=== PATIENT | male | born 1975 | race Hispanic/Latino ===

== ENCOUNTER 2017-01-08 14:29 | Inpatient (IN) | payer OTHER ==
[2017-01-08] MEDS ORDERED: MOTRIN ONE (17:15)
[2017-01-08] MEDS ORDERED: MOTRIN PO ONE (17:15)
[2017-01-08] MEDS ORDERED: CLEOCIN 900 MG/50 mL 900 MG/50 ML BAG IV ONE (18:37)
[2017-01-08] MEDS ORDERED: MORPHINE IV ONE ×2 (18:40→22:35)
[2017-01-08] MEDS ORDERED: ZOFRAN IV ONE (18:40)
--- NOTE | 2017-01-08 18:49 | Emergency Department Report ---
ED ENT HPI - General Chief complaint: Dental/Oral Stated complaint: TOOTHACHE Time Seen by Provider: 01/08/17 17:31 Source: patient Mode of arrival: Ambulatory Limitations: No Limitations - History of Present Illness Initial comments: This is a 41-year-old male nontoxic, well nourished in appearance, no acute signs of distress presents to the ED with c/o of right eye swelling, right facial swelling and toothache x 3 days. Patient stated on Sunday the toothache started and then today he wake up with right side facial swelling. Patient denies any headache, stiff neck, nausea, fever, chills, vomiting, blurry vision , chest pain, shortness of breathe, back pain, or visual changes. Patient describes pain as aching with level of 10/10. Patient denies any allergies or PMH. MD complaint: tooth pain, other (right facial and eye swelling) -: days(s) (3) Location: tooth # (multiple) Severity: mild Severity scale (0 -10): 10 Quality: aching Consistency: constant Improves with: none Worsens with: none Context- Dental: history of dental caries, poor dental care Associated Symptoms: gum swelling, toothache. denies: fever, cough, pain with swallowing, sore throat, tinnitus, hearing loss, discharge from ear, rhinorrhea - Related Data Previous Rx's Medication Instructions Recorded Last Taken Type Cephalexin [Keflex] 500 mg PO BID #14 capsule 08/26/13 Unknown Rx HYDROcodone/APAP 5-325 [[place] 1 each PO Q6HR PRN #10 tablet 08/26/13 Unknown Rx 5-325 mg TAB] Ibuprofen [Motrin] 800 mg PO Q8H PRN #20 tablet 08/26/13 Unknown Rx Sulfamethoxazole/Trimethoprim 1 each PO BID #14 tablet 08/26/13 Unknown Rx [Bactrim Ds] EPINEPHrine (NF) [Epipen (Nf)] 0.3 mg IM ONCE PRN #1 syringekit 05/28/14 Unknown Rx predniSONE [Deltasone] 50 mg PO QDAY #5 tab 05/28/14 Unknown Rx Allergies Allergy/AdvReac Type Severity Reaction Status Date / Time No Known Allergies Allergy Unverified 08/25/13 19:47 ED Dental HPI - General Chief complaint: Dental/Oral Stated complaint: TOOTHACHE Time Seen by Provider: 01/08/17 17:31 Source: patient Mode of arrival: Ambulatory Limitations: No Limitations - Related Data Previous Rx's Medication Instructions Recorded Last Taken Type Cephalexin [Keflex] 500 mg PO BID #14 capsule 08/26/13 Unknown Rx HYDROcodone/APAP 5-325 [[place] 1 each PO Q6HR PRN #10 tablet 08/26/13 Unknown Rx 5-325 mg TAB] Ibuprofen [Motrin] 800 mg PO Q8H PRN #20 tablet 08/26/13 Unknown Rx Sulfamethoxazole/Trimethoprim 1 each PO BID #14 tablet 08/26/13 Unknown Rx [Bactrim Ds] EPINEPHrine (NF) [Epipen (Nf)] 0.3 mg IM ONCE PRN #1 syringekit 05/28/14 Unknown Rx predniSONE [Deltasone] 50 mg PO QDAY #5 tab 05/28/14 Unknown Rx Allergies Allergy/AdvReac Type Severity Reaction Status Date / Time No Known Allergies Allergy Unverified 08/25/13 19:47 ED Review of Systems ROS: Stated complaint: TOOTHACHE Other details as noted in HPI Constitutional: denies: chills, fever Eyes: other (right eye swelling and redness). denies: eye pain, eye discharge, vision change ENT: dental pain. denies: ear pain, throat pain Respiratory: denies: cough, shortness of breath, wheezing Cardiovascular: denies: chest pain, palpitations Endocrine: no symptoms reported Gastrointestinal: denies: abdominal pain, nausea, diarrhea Genitourinary: denies: urgency, dysuria Musculoskeletal: denies: back pain, joint swelling, arthralgia Skin: denies: rash, lesions Neurological: denies: headache, weakness, paresthesias Psychiatric: denies: anxiety, depression Hematological/Lymphatic: denies: easy bleeding, easy bruising ED Past Medical Hx - Past Medical History Previous Medical History?: No - Surgical History Past Surgical History?: Yes Additional Surgical History: rt hand - Social History Smoking Status: Current Every Day Smoker Substance Use Type: None - Medications Home Medications: Home Medications Medication Instructions Recorded Confirmed Last Taken Type Cephalexin [Keflex] 500 mg PO BID #14 capsule 08/26/13 Unknown Rx HYDROcodone/APAP 5-325 [[place] 1 each PO Q6HR PRN #10 tablet 08/26/13 Unknown Rx 5-325 mg TAB] Ibuprofen [Motrin] 800 mg PO Q8H PRN #20 tablet 08/26/13 Unknown Rx Sulfamethoxazole/Trimethoprim 1 each PO BID #14 tablet 08/26/13 Unknown Rx [Bactrim Ds] EPINEPHrine (NF) [Epipen (Nf)] 0.3 mg IM ONCE PRN #1 syringekit 05/28/14 Unknown Rx predniSONE [Deltasone] 50 mg PO QDAY #5 tab 05/28/14 Unknown Rx ED Physical Exam - General Limitations: No Limitations General appearance: alert, in no apparent distress - Head Head exam: Present: atraumatic, normocephalic - Eye Eye exam: Present: normal appearance, PERRL, EOMI, periorbital swelling, periorbital tenderness. Absent: scleral icterus, conjunctival injection, nystagmus Pupils: Present: normal accommodation. Absent: unequal - ENT ENT exam: Present: mucous membranes moist, TM's normal bilaterally, normal external ear exam - Expanded ENT Exam Expanded Ear exam: Present: normal external inspection Mouth exam: Present: normal external inspection, tongue normal. Absent: drooling, trismus, muffled voice, tongue elevation, laceration Teeth exam: Present: dental caries, fractured tooth # (multiple), dental tenderness # (multiple), gingival enlargement, other (right facial swelling with tenderness. No induration or fluctance noted. ) Throat exam: Positive: normal inspection. Negative: tonsillar erythema, tonsillomegaly, tonsillar exudate, R peritonsillar mass, L peritonsillar mass - Neck Neck exam: Present: normal inspection, full ROM. Absent: tenderness, meningismus, lymphadenopathy, thyromegaly - Respiratory Respiratory exam: Present: normal lung sounds bilaterally. Absent: respiratory distress, wheezes, rales, rhonchi, stridor, chest wall tenderness, accessory muscle use, decreased breath sounds, prolonged expiratory - Cardiovascular Cardiovascular Exam: Present: regular rate, normal rhythm, normal heart sounds. Absent: bradycardia, tachycardia, irregular rhythm, systolic murmur, diastolic murmur, rubs, gallop - GI/Abdominal GI/Abdominal exam: Present: soft, normal bowel sounds. Absent: distended, tenderness, guarding, rebound, rigid, diminished bowel sounds - Rectal Rectal exam: Present: deferred - Extremities Exam Extremities exam: Present: normal inspection, full ROM, normal capillary refill. Absent: tenderness, pedal edema, joint swelling, calf tenderness - Back Exam Back exam: Present: normal inspection, full ROM. Absent: tenderness, CVA tenderness (R), CVA tenderness (L), muscle spasm, paraspinal tenderness, vertebral tenderness, rash noted - Neurological Exam Neurological exam: Present: alert, oriented X3, CN II-XII intact, normal gait, reflexes normal - Psychiatric Psychiatric exam: Present: normal affect, normal mood - Skin Skin exam: Present: warm, dry, intact, normal color. Absent: rash ED Course Vital Signs 01/08/17 16:38 Temperature 98.1 F Pulse Rate 69 Respiratory 20 Rate Blood Pressure 141/75 O2 Sat by Pulse 99 Oximetry - Reevaluation(s) Reevaluation #1: 01/08/17 18:52 Patient is speaking in full sentences with no signs of distress noted. - Consultations Consultation #1: 01/08/17 18:52 Dr. Zavala has been consulted about patient history, physical exam, and examined patient and agrees to the plan of care in the ED. Consultation #2: 01/08/17 21:37 Dr. Pavon (hospitalist) was consulted about patient history, physical exam, and imaging studies and agrees for admission and accepts patient to her services. ED Medical Decision Making - Lab Data Result diagrams: 01/08/17 18:42 01/08/17 18:42 - Medical Decision Making This is a 41-year-old male that presents with periorbital cellulitis, dental abscess. Patient is stable and was examined by me. CBC and BMP obtained with elevated white count. CT with con of face obtained and dictated by radiologist. Patient was notified of the plan of care in the ED as well as admission. Patient received 900mg Clinda IV, Morphine and Zofran in the ED. Dr. Zavala and Dr. Pavon consulted and agrees for admission. Dr. Pavon accepts patient. Patient is put on [employer]. At time time of admission, the patient does not seem toxic or ill in appearance. No acute signs of distress noted. Patient agrees to admission treatment plan of care. No further questions noted by the patient. Critical care attestation.: If time is entered above; I have spent that time in minutes in the direct care of this critically ill patient, excluding procedure time. ED Disposition Clinical Impression: Periorbital cellulitis of right eye, Dental abscess Disposition: OP ADMIT IP TO THIS HOSP Is pt being admited?: Yes Does the pt Need Aspirin: No Condition: Stable Referrals: PRIMARY CARE, [Primary Care Provider] - 3-5 Days
[2017-01-08] MEDS ORDERED: NACL ONE (19:05)
[2017-01-08 19:11] LABS: Basophils % (Auto) 0.5 % (0.0-1.8); Eosinophils % (Auto) 0.1 % (0.0-4.3); Hematocrit 43.5 % (35.5-45.6); Hemoglobin 14.6 gm/dl (11.8-15.2); Mean Corpuscular HGB Conc 33 % (32-34); Mean Corpuscular Hemoglobin 30 pg (28-32); Mean Corpuscular Volume 90 fl (84-94); Platelet Count 270 K/mm3 (140-440); Red Blood Count 4.82 M/mm3 (3.65-5.03)
[2017-01-08 19:34] LABS: Anion Gap 21 mmol/L; BUN/Creatinine Ratio 17; Blood Urea Nitrogen 10 mg/dL (9-20); Calcium 8.9 mg/dL (8.4-10.2); Carbon Dioxide 22 mmol/L (22-30); Chloride 96.9 mmol/L (98-107); Glucose 112 mg/dL (75-100); Potassium 3.9 mmol/L (3.6-5.0); Sodium 136 mmol/L (137-145)
[2017-01-08] MEDS ORDERED: NACL 0.9% 1000 ML 1,000 ML IV ONE (19:40)
--- NOTE | 2017-01-08 21:01 | Cat Scan Report ---
FINAL REPORT PROCEDURE: CT FACIAL BONES W CON TECHNIQUE: Computerized tomography of the facial bones and soft tissues with axial and coronal sections was performed from the cranial aspect of the frontal sinuses to the caudal portion of the mandible following the IV injection of iodinated nonionic contrast. HISTORY: rigth side facial swelling r/o abscess COMPARISON: No prior studies are available for comparison. FINDINGS: Polypoid lesions are noted in the right maxillary sinus most likely representing mucous retention cysts. Irregular lytic lesions are noted surrounding the roots of left upper incisors, right upper molar , right lower molar and right lower pre molar teeth consistent with root canal abscesses. Moderate degree right cheek and mandibular soft tissue swelling is identified. Facial bones are intact. Mild degree mucosal thickening is noted involving the right frontal sinus. Mastoid air cells are clear. Bilateral orbital contents including eyeball zone retrobulbar structures are within normal limits. IMPRESSION: Multiple right-sided root canal abscesses as described above associated with soft tissue swelling. Right frontal chronic sinusitis
[2017-01-08] MEDS ORDERED: MILK OF MAGNESIA PO PRN (22:34)
[2017-01-08] MEDS ORDERED: DULCOLAX PR PRN (22:34)
[2017-01-08] MEDS ORDERED: TYLENOL PR PRN (22:34)
[2017-01-08] MEDS ORDERED: ZOFRAN IV PRN (22:34)
[2017-01-08] MEDS ORDERED: TYLENOL PO PRN (22:34)
[2017-01-08] MEDS ORDERED: MORPHINE ONE (22:37)
--- NOTE | 2017-01-08 22:37 | History and Physical Report ---
History of Present Illness Date of examination: 01/08/17 History of present illness: 41-year-old man with no medical problems, comes to the emergency room with complaint of swolling R of the right side of his face that started this morning. Also complaining of toothache, fever, chills Review Of Systems: Constitutional: no weight loss Ears, eyes, nose, mouth and throat: no nasal congestion, no nasal discharge, no sinus pressure, blurry vision, diplopia Neck: No neck pain or rigidity. Cardiovascular: no chest pain, orthopnea, palpitations Respiratory: No shortness of breath, cough Gastrointestinal: no abdominal pain, hematochezia Genitourinary : no dysuria, frequency , hematuria Musculoskeletal: no muscle ache Integumentary: no rash, no pruritis Neurological: no parathesias, focal weakness Endocrine: no cold or heat intolerance, no polyuria or polydipsia Hematologic/Lymphatic: no easy bruising, no easy bleeding, no gland swelling Allergic/Immunologic: no urticaria, no angioedema. PAST MEDICAL HISTORY:none PAST SURGICAL HISTORY:none FAMILY HISTORY: Hypertension SOCIAL HISTORY: Denies tobacco, alcohol, drugs Medications and Allergies Allergies Allergy/AdvReac Type Severity Reaction Status Date / Time No Known Allergies Allergy Unverified 08/25/13 19:47 Home Medications Medication Instructions Recorded Confirmed Last Taken Type Acetaminophen [Acetaminophen TAB] 325 mg PO Q4H PRN #30 tablet 01/10/17 Unknown Rx Amoxicillin/Potassium Clav 1 each PO BID #10 day 01/10/17 Unknown Rx [Augmentin 875-125 Tablet] Oxycodone HCl/Acetaminophen 1 each PO Q6H PRN #15 tablet 01/10/17 Unknown Rx [Percocet 10/325 mg] Exam - Physical Exam Narrative exam: Gen. appearance: Patient lying in bed in no acute distress HEENT: Normocephalic/atraumatic, pupils equal round reactive to light, extra alkaline movement intact, no scleral icterus, no JVD or thyromegaly or nodule, neck is supple, mucous membrane moist, no erythema or exudate, swelling of the right side of the face infraorbital to area over the Molars, tender, positive erythema Heart: S1-S2, regular rate and rhythm Lungs: Clear to auscultation bilateral breathing comfortable Abdomen: Positive bowel sounds, nontender, nondistended, no organomegaly Extremities: No edema, cyanosis, clubbing Neuro:: Oriented 3 , cranial nerves II-12 intact, speech, motor intact Skin: No rash, nodules, warm dry - Constitutional Vitals: Temp Pulse Resp BP Pulse Ox 98.1 F 69 20 141/75 99 01/08/17 16:38 01/08/17 16:38 01/08/17 16:38 01/08/17 16:38 01/08/17 16:38 Results - Labs CBC & Chem 7: 01/09/17 06:33 01/09/17 06:33 Labs: Abnormal lab results 01/08/17 01/08/17 Range/Units 18:42 18:42 WBC 15.0 H (4.5-11.0) K/mm3 RDW 13.0 L (13.2-15.2) % Lymph % (Auto) 7.0 L (13.4-35.0) % Lymph # 1.1 L (1.2-5.4) K/mm3 [place] # 1.1 H (0.0-0.8) K/mm3 Seg Neutrophils % 85.3 H (40.0-70.0) % Seg Neutrophils # 12.8 H (1.8-7.7) K/mm3 Sodium 136 L (137-145) mmol/L Chloride 96.9 L (98-107) mmol/L Creatinine 0.6 L (0.8-1.5) mg/dL Glucose 112 H (75-100) mg/dL Assessment and Plan CT face reviewed Assessment Facial cellulitis Tooth abscess Plan Admit to medicine Start IV antibiotic, IV morphine, DVT prophylaxis
[2017-01-09] MEDS: MORPHINE IV PRN ×2 (02:02→10:10)
[2017-01-09] MEDS: NACL 0.9% 1000 ML 1,000 ML IV SCH (02:04)
[2017-01-09] MEDS ORDERED: MORPHINE IV ONE (03:55)
[2017-01-09] MEDS: CLEOCIN 900 MG/50 mL 900 MG/50 ML BAG IV SCH ×3 (06:28→21:09)
[2017-01-09 07:37] LABS: Anion Gap 19 mmol/L; BUN/Creatinine Ratio 11; Blood Urea Nitrogen 8 mg/dL (9-20); Calcium 8.5 mg/dL (8.4-10.2); Carbon Dioxide 25 mmol/L (22-30); Chloride 96.1 mmol/L (98-107); Glucose 111 mg/dL (75-100); Potassium 4.1 mmol/L (3.6-5.0); Sodium 136 mmol/L (137-145)
[2017-01-09 08:01] LABS: Basophils % (Auto) 0.1 % (0.0-1.8); Eosinophils % (Auto) 0.1 % (0.0-4.3); Hemoglobin 14.2 gm/dl (11.8-15.2); Mean Corpuscular HGB Conc 34 % (32-34); Mean Corpuscular Hemoglobin 31 pg (28-32); Mean Corpuscular Volume 92 fl (84-94); Platelet Count 271 K/mm3 (140-440); Red Blood Count 4.58 M/mm3 (3.65-5.03); Red Cell Distribution Width 12.9 % (13.2-15.2); White Blood Count 16.3 K/mm3 (4.5-11.0)
[2017-01-09] MEDS: LOVENOX SUB-Q SCH (10:19)
--- NOTE | 2017-01-09 12:20 | Progress Note ---
Assessment and Plan Assessment and plan: 41-year-old man with no medical problems, his emergency room with complaint of swollen RIGHT SIDE OF HIS FACE THAT STARTED THIS MORNING. Also complaining of toothache, fever, chills Sepsis/facial cellulitis/dental abscess and hard palate abscess continue abx, ID consult will need referral to ENT and Oral surgery for surgical drainage after he is dc HTN Likely due to pain, monitor blood pressure curve, optimize pain meds History Interval history: He is complaining of severe face and mouth pain. Facial swelling, swelling his now. He just wants on to pop the abscess in his mouth to relieve the pain. Denies throat swelling, denies trouble swallowing. Review of systems Constitutional: No fevers, no malaise, no joint pains CVS: No chest pain, no orthopnea, no dyspnea on exertion, no pedal edema GI: No abdominal pain, no diarrhea, no vomiting, no constipation Respiratory: No shortness of breath, no wheezing, no coughing Hospitalist Physical - Physical exam Narrative exam: General.: Appears well, no distress, nontoxic HEENT: Extensive facial edema and erythema, worse on the right side than the left. Patient has fluctuants swelling in his upper palate Neck: supple Cardiac: S1-S2 heard Lungs: clear to auscultation bilaterally Abdomen: soft , nontender, nondistended, bowel sounds positive Extremities: no edema clubbing or cyanosis Skin: no rash or lesions Neurologic: no gross focal deficits Psych: appropriate behavior, appropriate mood, corporative, judgment intact - Constitutional Vitals: Temp Pulse Resp BP Pulse Ox 98.1 F 78 20 117/63 95 01/09/17 08:03 01/09/17 08:03 01/09/17 08:03 01/09/17 08:03 01/09/17 08:03 Results - Labs CBC & Chem 7: 01/09/17 06:33 01/09/17 06:33 Labs: Laboratory Last Values WBC 16.3 K/mm3 (4.5-11.0) H 01/09/17 06:33 RBC 4.58 M/mm3 (3.65-5.03) 01/09/17 06:33 Hgb 14.2 gm/dl (11.8-15.2) 01/09/17 06:33 Hct 42.0 % (35.5-45.6) 01/09/17 06:33 MCV 92 fl (84-94) 01/09/17 06:33 MCH 31 pg (28-32) 01/09/17 06:33 MCHC 34 % (32-34) 01/09/17 06:33 RDW 12.9 % (13.2-15.2) L 01/09/17 06:33 Plt Count 271 K/mm3 (140-440) 01/09/17 06:33 Lymph % (Auto) 8.5 % (13.4-35.0) L 01/09/17 06:33 [place] % (Auto) 8.7 % (0.0-7.3) H 01/09/17 06:33 Eos % (Auto) 0.1 % (0.0-4.3) 01/09/17 06:33 Baso % (Auto) 0.1 % (0.0-1.8) 01/09/17 06:33 Lymph # 1.4 K/mm3 (1.2-5.4) 01/09/17 06:33 [place] # 1.4 K/mm3 (0.0-0.8) H 01/09/17 06:33 Eos # 0.0 K/mm3 (0.0-0.4) 01/09/17 06:33 Baso # 0.0 K/mm3 (0.0-0.1) 01/09/17 06:33 Seg Neutrophils % 82.6 % (40.0-70.0) H 01/09/17 06:33 Seg Neutrophils # 13.4 K/mm3 (1.8-7.7) H 01/09/17 06:33 Sodium 136 mmol/L (137-145) L 01/09/17 06:33 Potassium 4.1 mmol/L (3.6-5.0) 01/09/17 06:33 Chloride 96.1 mmol/L (98-107) L 01/09/17 06:33 Carbon Dioxide 25 mmol/L (22-30) 01/09/17 06:33 Anion Gap 19 mmol/L 01/09/17 06:33 BUN 8 mg/dL (9-20) L 01/09/17 06:33 Creatinine 0.7 mg/dL (0.8-1.5) L 01/09/17 06:33 Estimated GFR > 60 ml/min 01/09/17 06:33 BUN/Creatinine Ratio 11 % 01/09/17 06:33 Glucose 111 mg/dL (75-100) H 01/09/17 06:33 Calcium 8.5 mg/dL (8.4-10.2) 01/09/17 06:33
[2017-01-09] MEDS ORDERED: MORPHINE PO PRN (12:36)
[2017-01-09] MEDS: DILAUDID IV PRN ×3 (12:47→21:06)
[2017-01-10] MEDS: DILAUDID IV PRN ×3 (04:53→12:57)
[2017-01-10] MEDS: CLEOCIN 900 MG/50 mL 900 MG/50 ML BAG IV SCH ×2 (05:01→13:00)
[2017-01-10] MEDS: NACL 0.9% 1000 ML 1,000 ML IV SCH ×2 (06:49→08:28)
[2017-01-10] MEDS: LOVENOX SUB-Q SCH (09:38)
--- NOTE | 2017-01-10 13:37 | Consultation ---
History of Present Illness - Reason for Consult Consult date: 01/10/17 dental abscess Requesting physician: TEE SCHAFER - History of Present Illness 41 years old male with no medical history, admitted on 01/08/2017 due to severe right facial swelling, tenderness associated with low-grade fever and malaise. Patient reports that swelling and tenderness started 7 days ago. Patient is well known to have dental caries. Denies fever, chills, N/V/D, chest congestion. In in the emergency room, initial temperature was 98.1, heart rate 69, respirations 20, blood pressure 141/75. Initial white blood cell 15. Hemoglobin 14.6. Platelets 270. Creatinine 0.6. Facial CT showed multiple right-sided root canal abscesses. Past History Past Surgical History: No surgical history Social history: no significant social history Family history: no significant family history Medications and Allergies Allergies Allergy/AdvReac Type Severity Reaction Status Date / Time No Known Allergies Allergy Unverified 08/25/13 19:47 Home Medications Medication Instructions Recorded Confirmed Last Taken Type No Known Home Medications [No 01/09/17 01/09/17 Unknown History Reported Home Medications] Active Meds: Active Medications Acetaminophen (Tylenol) 650 mg PO Q4H PRN PRN Reason: Pain MILD(1-3)/Fever >100.5/GRACE Acetaminophen (Tylenol) 650 mg ND Q4H PRN PRN Reason: Pain MILD(1-3)/Fever >100.5/GRACE Bisacodyl (Dulcolax) 10 mg ND QDAY PRN PRN Reason: Constipation unrelieved by MOM Enoxaparin Sodium (Lovenox) 40 mg SUB-Q QDAY [facility] Last Admin: 01/10/17 09:38 Dose: 40 mg Hydromorphone HCl (Dilaudid) 1 mg IV Q4H PRN PRN Reason: Pain , Severe (7-10) Last Admin: 01/10/17 12:57 Dose: 1 mg Clindamycin HCl (Cleocin 900 Mg/50 Ml) 900 mg in 50 mls @ 100 mls/hr IV Q8HR [facility] PRN Reason: Protocol Last Admin: 01/10/17 13:00 Dose: 100 mls/hr Sodium Chloride (Nacl 0.9% 1000 Ml) 1,000 mls @ 100 mls/hr IV DIRECT [facility] Last Admin: 01/10/17 08:28 Dose: 100 mls/hr Magnesium Hydroxide (Milk Of Magnesia) 30 ml PO Q4H PRN PRN Reason: Constipation Morphine Sulfate (Morphine) 10 mg PO Q4H PRN PRN Reason: Pain, Moderate (4-6) Ondansetron HCl (Zofran) 4 mg IV Q8H PRN PRN Reason: N/V unrelieved by Reglan Physical Examination - Physical Exam Narrative exam: General appearance: Alert in NAD, conversant Eyes: anicteric sclerae, moist conjunctivae; no lid-lag; PERRLA HENT: Atraumatic; oropharynx clear multiple dental caries + right face swelling , tenderness Neck: Trachea midline; supple, no thyromegaly or lymphadenopathy Lungs: CTA CV: RRR Abdomen: Soft, non-tender Extremities: No peripheral edema or extremity lymphadenopathy Skin: Normal temperature, turgor and texture; no rash, ulcers or subcutaneous nodules Psych: Appropriate affect, alert and oriented to person, place and time. Neuro: alert and oriented x 3. Moving all extermities Lines: No CVL / PICC - Constitutional Vitals: Vital Signs Temp Pulse Resp BP Pulse Ox 98.7 F 68 20 94/58 96 01/10/17 07:46 01/10/17 07:46 01/10/17 08:30 01/10/17 07:46 01/10/17 07:46 Temperature -Last 24 Hours Temperature 98.7 F Temperature 99.5 F Temperature 98.4 F Results - Labs CBC & Chem 7: 01/09/17 06:33 01/09/17 06:33 Assessment and Plan Assessment: 1) Leukocytosis: from dental abscesses 2) Multiple dental abscesses Plan: -start unasy -stop clinda -dental referral -ok to d/c on augmentin 875 mg po q12h total [address] Schafer for your consultation, will follow up with you. Umm Everett MD Infectious Diseases Specialist [facility] M [phone] O [phone]
[2017-01-10] MEDS ORDERED: UNASYN IV ONE (14:28)
--- NOTE | 2017-01-10 16:28 | Discharge Summary ---
Providers - Providers Date of Admission: 01/08/17 22:48 Date of discharge: 01/10/17 Attending physician: TEE DUDLEY 01/09/17 12:20 Consult to Physician [CONS] Routine Consulting Provider: MELINDA SOL Reason For Exam: sepsis, dental abscess Place consult to:: DR. AVERY Notified:: DR. AVERY Comment:: WILL SEE [facility]. 01/10/17 Primary care physician: PHYTOPATHOLOGIST Hospitalization Condition: Stable Hospital course: Patient is a 41-year-old man with no medical problems, his emergency room with complaint of swollen RIGHT SIDE OF HIS FACE. Also complaining of toothache, fever, chills. Facial CT. Multiple roots canal abscesses on the right side. Lateral abscess, extensive facial edema. Sepsis/facial cellulitis/dental abscess and hard palate abscess continue abx, ID consult will need referral to ENT and Oral surgery for surgical drainage after he is dc There is no ENT or Dentist available at this hospital. I will give him a referral to an excellent oral surgeon, Dr. Akhil Sun Dentist - behavioral health assistant [address] [place] [address] [phone] HTN Likely due to pain, monitor blood pressure curve, optimize pain meds per ID: "1) Leukocytosis: from dental abscesses 2) Multiple dental abscesses Plan: -start unasy -stop clinda -dental referral -ok to d/c on augmentin 875 mg po q12h total [address] Dudley for your consultation, will follow up with you." Melinda Everett MD Infectious Diseases Specialist Disposition: TO HOME OR SELFCARE Time spent for discharge: 35 minutes Core Measure Documentation - Palliative Care Palliative Care/ Comfort Measures: Not Applicable - Core Measures Any of the following diagnoses?: none - VTE Discharge Requirements Deep Vein Thrombosis/Pulmonary Embolism Present on Admission: No Has pt received <5 days of overlap therapy or INR<2.0: No Anticoagulant overlap therapy prescribed at discharge: No Contraindication No Overlap Therapy order at DC: Not Indicated Exam - Physical Exam Narrative exam: GEN: WDWN, NAD, AWAKE, ALERT, ORIENTATED x 3 HEENT: NCAT, EOMI, PERRL, OP with poor dental hygiene with right molar(s) infection, there is no obvious signs of orbital or facial cellulitis except right jaw swelling from interior tooth infection NECK: supple, no adenopathy, no thyromegaly, no JVD CVS/HEART: RRR, NORMAL S1S2, NO JVD, pulses present bilaterally CHEST/LUNGS: CTA B, Symmetrical chest expansion, good air entry bilaterally GI/Abdomen: soft, NTND, good bowel sounds, no guarding or rebound /Bladder: no suprapubic tenderness, no CVA or paraspinal tenderness EXT/Skin: no c/c/e, no obvious rash MSK: FROM x 4 Neuro: CN 2-12 grossly intact, no new focal deficits Psych: calm, wants to stay, getting iv dilaudid around the clock - Constitutional Vitals: Temp Pulse Resp BP Pulse Ox 98.7 F 68 20 94/58 96 01/10/17 07:46 01/10/17 07:46 01/10/17 08:30 01/10/17 07:46 01/10/17 07:46 Plan Activity: other (no strenous activity until cleared by pcp) Diet: advance as tolerated Additional Instructions: Call tomorrow to get first available appointment with. Dr. Akhil Sun. Dentist - behavioral health assistant. [address] [place] [address]. [phone] Follow up with: PRIMARY CARE, [Primary Care Provider] - 3-5 Days Prescriptions: Acetaminophen [Acetaminophen TAB] 325 mg PO Q4H PRN #30 tablet PRN Reason: Pain MILD(1-3)/Fever >100.5/GRACE Amoxicillin/Potassium Clav [Augmentin 875-125 Tablet] 1 each PO BID #10 day Oxycodone HCl/Acetaminophen [Percocet 10/325 mg] 1 each PO Q6H PRN #15 tablet PRN Reason: Pain , Severe (7-10)
[2017-01-10 17:11] VITALS: BP 102/59
[2017-01-10] MEDS ORDERED: UNASYN/NS 3 GM/100 ML 3 GM/100 ML BAG IV SCH (18:00)
== END 2017-01-10 19:10 | disposition home or self-care (01) | DRG 872 ==
LOC: ED 14:29 → 3A 22:48
PROVIDERS: ADMIT Internal Medicine; ATTEND Internal Medicine
DX: A41.9 Sepsis, unspecified organism (principal); L03.213 Periorbital cellulitis; L03.211 Cellulitis of face; K04.7 Periapical abscess without sinus; M27.2 Inflammatory conditions of jaws; I10 Essential (primary) hypertension; Z79.899 Other long term (current) drug therapy; Z82.49 Family history of ischemic heart disease and other diseases of the circulatory system
CPT/HCPCS: 36415; 70487; 80048; 85025; 96365; 96375; 96376; J0295; J1170; J1650; J2270; J2405; J7030; Q9967

== ENCOUNTER 2021-09-28 11:36 | Emergency (ER) | payer SELFPAY ==
[2021-09-29] MEDS ORDERED: IBUPROFEN 800 MG TAB PO ONE ×2 (02:20→12:51)
[2021-09-29 02:21] VITALS: BP 171/69
[2021-09-29] MEDS ORDERED: CLINDAMYCIN 300 MG CAP PO ONE (08:34)
[2021-09-29] MEDS ORDERED: HYDROcodone/ACETAMINOPHEN 10-325MG TAB PO ONE (08:34)
[2021-09-29 09:26] LABS: Basophils # (Auto) 0.1 K/mm3 (0.0-0.1); Basophils % (Auto) 2.2 % (0.0-1.8); Eosinophils # (Auto) 0.1 K/mm3 (0.0-0.4); Eosinophils % (Auto) 1.2 % (0.0-4.3); Hematocrit 41.1 % (35.5-45.6); Hemoglobin 14.6 gm/dl (11.8-15.2); Lymphocytes # (Auto) 0.8 K/mm3 (1.2-5.4); Lymphocytes % (Auto) 12.4 % (13.4-35.0); Mean Corpuscular HGB Conc 36 % (32-34); Mean Corpuscular Volume 90 fl (84-94); Monocytes # (Auto) 0.3 K/mm3 (0.0-0.8); Monocytes % (Auto) 4.8 % (0.0-7.3); Platelet Count 273 K/mm3 (140-440); Red Blood Count 4.58 M/mm3 (3.65-5.03); Red Cell Distribution Width 13.2 % (13.2-15.2)
--- NOTE | 2021-09-29 09:31 | XRay Report ---
RIGHT TIBIA AND FIBULA 2 VIEWS INDICATION: right leg pain with abrasion and cellulitis. COMPARISON: None. IMPRESSION: No osseous abnormality is detected. There is mild nonspecific soft tissue swelling/bill a distally. No soft tissue gas or foreign body. This could represent a cellulitis. Signer Name: Jm Kathleen Jr, MD Signed: 09/29/2021 9:26 AM Workstation Name: [id number]
[2021-09-29 09:34] LABS: BUN/Creatinine Ratio 20; Blood Urea Nitrogen 18 mg/dL (9-20); Hemolysis Index 2
--- NOTE | 2021-09-29 10:31 | Vascular Lab Report ---
DUPLEX DOPPLER LOWER EXTREMITY VEINS, RIGHT INDICATION / CLINICAL INFORMATION: right leg and swelling pain. TECHNIQUE: Duplex doppler imaging was performed through the veins of the right lower extremity using venous compression and other maneuvers. COMPARISON: None available. FINDINGS: RIGHT COMMON FEMORAL VEIN: Negative. RIGHT FEMORAL VEIN: Negative. RIGHT POPLITEAL VEIN: Negative. RIGHT CALF VEINS: Negative. ADDITIONAL FINDINGS: None. IMPRESSION: 1. No sonographic evidence for DVT in the right lower extremity. Signer Name: David Temple MD Signed: 09/29/2021 10:26 AM Workstation Name: [id number]
--- NOTE | 2021-09-29 10:42 | Emergency Department Report ---
- General Chief complaint: Extremity Injury, Lower Stated complaint: RT LEG PAIN Time Seen by Provider: 09/29/21 08:31 Source: patient, EMS Mode of arrival: Stretcher Limitations: No Limitations - History of Present Illness Initial comments: This is a 46-year-old male nontoxic, well nourished in appearance, no acute signs of distress presents to the ED with c/o of redness and pain with some swelling to right distal tib-fib area x several days. Patient denies any pus or drainage. Stated has some calf pain as well. Kwame any trauma or injuries. Patient denies any fever, chills, nausea, vomiting, chest pain, shortness of breath, headache or stiff neck. Patient denies any allergies. -: days(s) Tetanus Up to Date: no Location: [facility] Severity: mild Severity scale (0 -10): 8 Quality: aching Consistency: constant Improves with: none Worsens with: none Associated symptoms: denies other symptoms Treatments Prior to Arrival: none - Related Data Previous Rx's Medication Instructions Recorded Last Taken Type Acetaminophen [Acetaminophen TAB] 325 mg PO Q4H PRN #30 tablet 01/10/17 Unknown Rx Amoxicillin/Potassium Clav 1 each PO BID #10 day 01/10/17 Unknown Rx [Augmentin 875-125 Tablet] Oxycodone HCl/Acetaminophen 1 each PO Q6H PRN #15 tablet 01/10/17 Unknown Rx [Percocet 10/325 mg] Clindamycin [Clindamycin CAP] 300 mg PO Q6H #28 cap 09/29/21 Unknown Rx Allergies Allergy/AdvReac Type Severity Reaction Status Date / Time No Known Allergies Allergy Verified 09/28/21 11:42 Abscess Boil HPI - HPI Chief Complaint: Extremity Injury, Lower Stated Complaint: RT LEG PAIN Time Seen by Provider: 09/29/21 08:31 Home Medications: Previous Rx's Medication Instructions Recorded Last Taken Type Acetaminophen [Acetaminophen TAB] 325 mg PO Q4H PRN #30 tablet 01/10/17 Unknown Rx Amoxicillin/Potassium Clav 1 each PO BID #10 day 01/10/17 Unknown Rx [Augmentin 875-125 Tablet] Oxycodone HCl/Acetaminophen 1 each PO Q6H PRN #15 tablet 01/10/17 Unknown Rx [Percocet 10/325 mg] Clindamycin [Clindamycin CAP] 300 mg PO Q6H #28 cap 09/29/21 Unknown Rx Allergies/Adverse Reactions: Allergies Allergy/AdvReac Type Severity Reaction Status Date / Time No Known Allergies Allergy Verified 09/28/21 11:42 ED Review of Systems ROS: Stated complaint: RT LEG PAIN Other details as noted in HPI Comment: All other systems reviewed and negative Constitutional: denies: chills, fever Eyes: denies: eye pain, eye discharge, vision change ENT: denies: ear pain, throat pain Respiratory: denies: cough, shortness of breath, wheezing Cardiovascular: denies: chest pain, palpitations Endocrine: no symptoms reported Gastrointestinal: denies: abdominal pain, nausea, diarrhea Genitourinary: denies: urgency, dysuria Musculoskeletal: denies: back pain, joint swelling, arthralgia Skin: denies: rash, lesions Neurological: denies: headache, weakness, paresthesias Psychiatric: denies: anxiety, depression Hematological/Lymphatic: denies: easy bleeding, easy bruising ED Past Medical Hx - Surgical History Additional Surgical History: rt hand - Social History Smoking Status: Current Every Day Smoker - Medications Home Medications: Home Medications Medication Instructions Recorded Confirmed Last Taken Type Acetaminophen [Acetaminophen TAB] 325 mg PO Q4H PRN #30 tablet 01/10/17 Unknown Rx Amoxicillin/Potassium Clav 1 each PO BID #10 day 01/10/17 Unknown Rx [Augmentin 875-125 Tablet] Oxycodone HCl/Acetaminophen 1 each PO Q6H PRN #15 tablet 01/10/17 Unknown Rx [Percocet 10/325 mg] Clindamycin [Clindamycin CAP] 300 mg PO Q6H #28 cap 09/29/21 Unknown Rx ED Physical Exam - General Limitations: No Limitations General appearance: alert, in no apparent distress - Head Head exam: Present: atraumatic, normocephalic - Eye Eye exam: Present: normal appearance - Neck Neck exam: Present: normal inspection, full ROM. Absent: lymphadenopathy - Respiratory Respiratory exam: Absent: respiratory distress - Cardiovascular Cardiovascular Exam: Present: regular rate - Extremities Exam Extremities exam: Present: normal inspection, full ROM, tenderness, normal capillary refill, calf tenderness. Absent: joint swelling - Expanded Lower Extremity Exam Right Hip exam: Present: normal inspection, full ROM. Absent: tenderness, swelling Upper Leg exam: Present: normal inspection, full ROM. Absent: tenderness, swelling Knee exam: Present: normal inspection, full ROM. Absent: tenderness, swelling Lower Leg exam: Present: normal inspection, full ROM, tenderness, swelling, abrasion, erythema. Absent: laceration, ecchymosis, deformity, crepidus, dislocation, palpable cord, Will's sign Ankle exam: Present: normal inspection, full ROM. Absent: tenderness, swelling Foot/Toe exam: Present: normal inspection, full ROM. Absent: tenderness, swelli ng Neuro vascular tendon exam: Present: no vascular compromise Gait: Positive: observed and limited by pain 1 - 4 cm x 6 cm cellulitis present. Exam does not show abscess - Back Exam Back exam: Present: normal inspection, full ROM - Neurological Exam Neurological exam: Present: alert, oriented X3 - Psychiatric Psychiatric exam: Present: normal affect, normal mood - Skin Skin exam: Present: warm, dry, intact, normal color. Absent: rash ED Course Vital Signs 09/28/21 09/29/21 11:40 02:19 Temperature 98.1 F 97.7 F Pulse Rate 84 60 Respiratory 16 18 Rate Blood Pressure 141/72 171/69 [Left] O2 Sat by Pulse 98 100 Oximetry - Reevaluation(s) Reevaluation #1: 09/29/21 10:40 Patient is speaking in full sentences with no signs of distress noted. ED Medical Decision Making - Lab Data Result diagrams: 09/29/21 08:49 09/29/21 08:49 Lab Results 09/29/21 09/29/21 Range/Units 08:49 08:49 WBC 6.5 (4.5-11.0) K/mm3 RBC 4.58 (3.65-5.03) M/mm3 Hgb 14.6 (11.8-15.2) gm/dl Hct 41.1 (35.5-45.6) % MCV 90 (84-94) fl MCH 32 (28-32) pg MCHC 36 H (32-34) % RDW 13.2 (13.2-15.2) % Plt Count 273 (140-440) K/mm3 Lymph % (Auto) 12.4 L (13.4-35.0) % [place] % (Auto) 4.8 (0.0-7.3) % Eos % (Auto) 1.2 (0.0-4.3) % Baso % (Auto) 2.2 H (0.0-1.8) % Lymph # (Auto) 0.8 L (1.2-5.4) K/mm3 [place] # (Auto) 0.3 (0.0-0.8) K/mm3 Eos # (Auto) 0.1 (0.0-0.4) K/mm3 Baso # (Auto) 0.1 (0.0-0.1) K/mm3 Seg Neutrophils % 79.4 H (40.0-70.0) % Seg Neutrophils # 5.2 (1.8-7.7) K/mm3 Sodium 141 (137-145) mmol/L Potassium 4.3 (3.6-5.0) mmol/L Chloride 103.0 (98-107) mmol/L Carbon Dioxide 23 (22-30) mmol/L Anion Gap 19 mmol/L BUN 18 (9-20) mg/dL Creatinine 0.9 (0.8-1.3) mg/dL Estimated GFR > 60 ml/min BUN/Creatinine Ratio 20 % Glucose 67 L (75-100) mg/dL Calcium 9.0 (8.4-10.2) mg/dL - Radiology Data [facility] [address] [place] [address] Vascular Lab Report Signed Patient: JM MONTGOMERY MR#: [id number] : 1975 Acct:[id number] Age/Sex: 46 / M ADM Date: 09/28/21 Loc: ED Attending Dr: Ordering Physician: DANA SORIANO NP Date of Service: 09/29/21 Procedure(s): VL venous duplex LE RT Accession Number(s): [id number] cc: DANA SORIANO NP DUPLEX DOPPLER LOWER EXTREMITY VEINS, RIGHT INDICATION / CLINICAL INFORMATION: right leg and swelling pain. TECHNIQUE: Duplex doppler imaging was performed through the veins of the right lower extremity using venous compression and other maneuvers. COMPARISON: None available. FINDINGS: RIGHT COMMON FEMORAL VEIN: Negative. RIGHT FEMORAL VEIN: Negative. RIGHT POPLITEAL VEIN: Negative. RIGHT CALF VEINS: Negative. ADDITIONAL FINDINGS: None. IMPRESSION: 1. No sonographic evidence for DVT in the right lower extremity. Signer Name: Christie Boyer MD Signed: 09/29/2021 10:26 AM Workstation Name: [id number] Transcribed By: JW Dictated By: CHRISTIE BOYER MD Electronically Authenticated By: CHRISTIE BOYER MD Signed Date/Time: 09/29/211025 DD/ 25 TD/TT: [facility] [address] [place] [address] XRay Report Signed Patient: JM MONTGOMERY MR#: [id number] : 1975 Acct:[id number] Age/Sex: 46 / M ADM Date: 09/28/21 Loc: ED Attending Dr: Ordering Physician: DANA SORIANO NP Date of Service: 09/29/21 Procedure(s): XR tibia fibula 2V RT Accession Number(s): [id number] cc: DANA SORIANO NP Fluoro Time In Minutes: RIGHT TIBIA AND FIBULA 2 VIEWS INDICATION: right leg pain with abrasion and cellulitis. COMPARISON: None. IMPRESSION: No osseous abnormality is detected. There is mild nonspecific soft tissue swelling/edema distally. No soft tissue gas or foreign body. This could represent a cellulitis. Signer Name: Jm Kathleen Jr, MD Signed: 09/29/2021 9:26 AM Workstation Name: [id number] Transcribed By: SENTHIL Dictated By: JM KATHLEEN JR, MD Electronically Authenticated By: JM KATHLEEN JR, MD Signed Date/Time: 09/29/21925 DD/ 5 TD/TT: - Medical Decision Making This is a 46-year-old male that presents with cellulitis. Patient is stable and was examined by me. There is no induration, fluctuance. No signs of abscess formation. The area has been outlined with a permanent marker and patient was instructed to observe symptoms of increased redness or swelling and to return to the ER if this does occur. I will discharge patient with Clinda. Patient is notified of that the lab results and Doppler ultrasound report and extremities with no questions noted by the patient. Patient did receive a tetanus booster and clinda in the ER. Patient was referred to Follow-up with a primary care doctor in 3-5 days or if symptoms worsen and continue return to emergency room as soon as possible. At time of discharge, the patient does not seem toxic or ill in appearance. No acute signs of distress noted. Patient agrees to discharge treatment plan of care. No further questions noted by the patient. Critical care attestation.: If time is entered above; I have spent that time in minutes in the direct care of this critically ill patient, excluding procedure time. ED Disposition Clinical Impression: Left leg cellulitis, Pain of left calf Disposition: 01 HOME / SELF CARE / HOMELESS Is pt being admited?: No Does the pt Need Aspirin: No Condition: Stable Instructions: Cellulitis, Adult Additional Instructions: Follow-up with a primary care doctor in 3-5 days or if symptoms worsen and continue return to emergency room as soon as possible. Prescriptions: Clindamycin [Clindamycin CAP] 300 mg PO Q6H #28 cap Referrals: LUIS ANTONIO GOMEZ MD [Primary Care Provider] - 3-5 Days SANDOR GARCIA MD [Staff Physician] - 3-5 Days Time of Disposition: 10:47
== END 2021-09-29 13:03 | disposition home or self-care (01) ==
LOC: ED 11:36
DX: L03.116 Cellulitis of left lower limb (principal); M79.662 Pain in left lower leg; F17.200 Nicotine dependence, unspecified, uncomplicated
CPT/HCPCS: 36415; 80048; 85025; 99284